=== PATIENT | female | born 1970 | race Caucasian/White ===

== ENCOUNTER 2017-12-16 17:16 | Observation (INO) | payer BC ==
--- NOTE | 2017-12-16 18:15 | PDOC ---
History of Present Illness - General Chief Complaint: Seizure Stated Complaint: UNABLE TO SPEACH, ALMOST HAD A SEIZURE Time Seen by Provider: 12/16/17 17:25 History Source: Patient Exam Limitations: No Limitations - History of Present Illness Initial Comments: 12/16/17 18:20 The patient is a 47F with a PMH of seizures, anxiety, chronic lyme dz, who presents to the ER after stating she had a seizure. The patient states that she woke up this morning feeling fatigued, as she does every morning when she has seizures, and then had a seizure despite taking tegretol which she takes every time before she feels a seizure. She states that she had her seizure but did not have LOC, tongue biting, but had an episode of aphasia where she could not talk but could text what she was thinking. She denies any new numbness, tingling , or weakness, CP, SOB, fever, chills, nausea, vomiting. Past History - Past Medical History Allergies/Adverse Reactions: Allergies Allergy/AdvReac Type Severity Reaction Status Date / Time ciprofloxacin [From Cipro] Allergy Verified 12/16/17 17:25 levofloxacin [From Levaquin] Allergy Verified 12/16/17 17:25 Quinolones Allergy Verified 12/16/17 17:25 Home Medications: Ambulatory Orders Acetaminophen/Caffeine/Butalb [Fioricet -] 1 tablet PO PRN PRN 12/16/17 Clonazepam 0.25 mg PO ASDIR 12/16/17 Clonazepam 0.5 mg PO HS 12/16/17 Dexlansoprazole [Dexilant] 60 mg PO DAILY 12/16/17 Montelukast Sodium [Singulair] 10 mg PO DAILY 12/16/17 Ondansetron [Zofran -] 8 mg PO ASDIR 12/16/17 Oxycodone HCl/Acetaminophen [Endocet 10-325 mg Tablet] 1 - 2 each PO PRN PRN Sucralfate 1 gm PO DAILY 12/16/17 Thyroid [[place] Thyroid] 60 mg PO DAILY 12/16/17 Tizanidine HCl 18 mg PO HS 12/16/17 Carbamazepine Xr [Tegretol XR -] 200 mg PO BID tab.er.12h 12/17/17 COPD: No Seizures: Yes Other medical history: [employer] LYME DZ, [place] SPOTTED FEVER, AUTONOMIC NVS SYS D/O, SHINGLES - Suicide/Smoking/Psychosocial Hx Smoking History: Never smoked Hx Alcohol Use: No Drug/Substance Use Hx: No Substance Use Type: Alcohol Review of Systems - Review of Systems Able to Perform ROS?: Yes Comments:: 12/16/17 18:30 GENERAL/CONSTITUTIONAL: Positive for weakness. No fever or chills. HEAD, EYES, EARS, NOSE AND THROAT: No change in vision. No ear pain or discharge. No sore throat. CARDIOVASCULAR: No chest pain, palpitations, or lightheadedness. RESPIRATORY: No cough, wheezing, shortness of breath, or hemoptysis. GASTROINTESTINAL: No nausea, vomiting, diarrhea, constipation, or abdominal pain. GENITOURINARY: No dysuria, frequency, hematuria, or change in urination. MUSCULOSKELETAL: No joint or muscle swelling or pain. No neck or back pain. SKIN: No rash or lesions. NEUROLOGIC: Positive for seizure, headache, and chronic numbness 2/2 trigeminal neuralgia. No numbness, tingling, weakness, or change in strength/sensation. ENDOCRINE: No increased thirst. No abnormal weight change. HEMATOLOGIC/LYMPHATIC: No anemia, easy bleeding, or history of blood clots. ALLERGIC/IMMUNOLOGIC: No hives or skin allergy. Is the patient limited Nepalese proficient: No *Physical Exam - Vital Signs Last Vital Signs Temp Pulse Resp BP Pulse Ox 98.0 F 91 H 18 132/89 100 12/16/17 17:24 12/16/17 17:24 12/16/17 17:24 12/16/17 17:24 12/16/17 17:24 - Physical Exam Comments: 12/16/17 18:30 GENERAL: Well developed, well nourished. Awake and alert. No acute distress. HEENT: Normocephalic, atraumatic. Hearing grossly normal. Moist mucous membranes. PERRLA, EOMI. No conjunctival pallor. Sclera are non-icteric. NECK: Supple. Full ROM. No JVD. CARDIOVASCULAR: Regular rate and rhythm. No murmurs, rubs, or gallops. PULMONARY: No evidence of respiratory distress. Lungs clear to auscultation bilaterally. No wheezing, rales or rhonchi. ABDOMINAL: Soft. Non-tender. Non-distended. No rebound or guarding. GENITOURINARY: No CVA tenderness bilaterally. MUSCULOSKELETAL: Normal range of motion at all joints. No bony deformities or tenderness. EXTREMITIES: No cyanosis. No clubbing. No edema. No calf tenderness or swelling. SKIN: Warm and dry. Normal capillary refill. No rashes. No jaundice. NEUROLOGICAL: Alert, awake, appropriate. Cranial nerves 2-12 intact. No deficits to light touch and temperature in face, upper extremities and lower extremities. 5/5 strength in deltoids, biceps, triceps, quadriceps, hamstrings, and gastrocnemius. Finger to nose normal bilaterally. Normal speech. Gait is normal without ataxia. PSYCHIATRIC: Cooperative. Good eye contact. Appropriate mood and affect. ED Treatment Course - LABORATORY CBC & Chemistry Diagram: 12/17/17 07:15 12/17/17 07:15 Medical Decision Making - Medical Decision Making 12/16/17 18:32 The patient is a 47F with a PMH of seizures, anxiety, and trigeminal neuralgia who presents to the ER after stating she had a seizure. The pt's history sounds more like an atypical migraine but could be a seizure. Due to her change ( aphasia) in her seizure, I will image her brain. Pending basic labs and imaging. 12/16/17 19:03 Pt signed out to Dr. Plunkett for further care. *DC/Admit/Observation/Transfer Diagnosis at time of Disposition: Hyponatremia - Discharge Dispostion Disposition: HOME Condition at time of disposition: Stable - Referrals - Patient Instructions - Post Discharge Activity
--- NOTE | 2017-12-16 18:19 | PDOC ---
Attending Attestation - Resident Resident Name: Levy Saxena - ED Attending Attestation I have performed the following: I have examined & evaluated the patient, The case was reviewed & discussed with the resident, I agree w/resident's findings & plan - HPI HPI: 12/16/17 18:16 47 y/o female with hx of seizures and trigeminal neuralgia presents with seizure activity today but states this was different, she could not get words out, had to text them. Denies headache, fever or chills. No fall or trauma. Similar episode 2 weeks ago. No blurred vision. No N/V/d/C. Took her Tegretol and Clonazepam. Sees a Neurologist. No chest pain or SOB. - Physicial Exam PE: 12/16/17 18:18 VS stable HEENT unremarkable Heart : RRR w/o murmur Lungs: CTA b/l, no wheezes rhonchi or rales Abd: soft non tender +BS EXT: neg C/C/E Neuro: CN 2-12 grossly intact, no focal deficits noted - Medical Decision Making 12/16/17 18:28 Discussed case with Resident [place], will obtain CT head and labs. Will r/o TIA, seizure, flare up of trigeminal neuralgia Pt is in agreement with plan Case to be endorsed to Dr. Richmond at 1900. NIH Stroke Scale - Initial Evaluation Level of consciousness: Alert Ask patient the month and their age: Answers both correctly Ask patient to open & close eyes; make fist and let go: Obeys both correctly Best gaze (horizontal eye movement): Normal Visual field testing: No visual field loss Facial paresis (Show teeth/raise eyebrows/close eyes tight): Normal symmetrical movement Motor Function: Left Arm: Normal Motor Function: Right Arm: Normal (extends arm 90 (or 45) degrees for 10 seconds without drift Motor Function: Left Leg: Normal (extends leg 30 degrees for 5 seconds without drift) Motor Function: Right Leg: Normal (extends leg 30 degrees for 5 seconds without drift) Limb Ataxia: No ataxia Sensory(Use pinprick test arms,legs,trunk,face/side to side): Normal Best language (Describe picture, name items, read sentences): No Aphasia Dysarthria (read several words): Normal articulation Extinction and Inattention: No abnormality - Total Score NIH Stroke Scale Score: 0
[2017-12-16 18:44] LABS: HEMATOCRIT 33.1 % (32.4-45.2); HEMOGLOBIN 10.8 GM/dl (10.7-15.3); MCH 31.3 pg (25.7-33.7); MCHC 32.5 g/dl (32.0-36.0); MEAN CELL VOLUME 96.3 fl (80-96); MEAN PLT VOLUME 8.9 fl (7.5-11.1); PLATELET COUNT 343 K/MM3 (134-434); RBC 3.44 M/mm3 (3.60-5.2); RDW 16.3 % (11.6-15.6); WHITE BLOOD COUNT 5.3 K/mm3 (4.0-10.8)
[2017-12-16 19:02] LABS: ADD RBC MORPHOLOGY YES
[2017-12-16 19:08] LABS: ALBUMIN 4.1 g/dl (3.5-5.0); ALK PHOS 50 U/L (32-92); ANION GAP 5 (8-16); BILIRUBIN,TOTAL 0.8 mg/dl (0.2-1.0); BLOOD UREA NITROGEN 17 mg/dl (7-18); CALCIUM 8.5 mg/dl (8.4-10.2); CHLORIDE 98 mmol/L (98-107); CO2 26 mmol/L (22-28); CREATININE 0.7 mg/dl (0.6-1.3); GLUCOSE,RANDOM 76 mg/dl (74-106); MAGNESIUM 2.1 mg/dL (1.8-2.4); POTASSIUM 4.3 mmol/L (3.5-5.1); SGOT/AST 31 U/L (10-42); SGPT/ALT 27 U/L (10-40); SODIUM 129 mmol/L (136-145); TOT PROT 6.8 g/dl (6.4-8.3)
[2017-12-16] MEDS ORDERED: SODIUM CHLORIDE 1,000 ML IV ONE (19:34)
--- NOTE | 2017-12-16 19:43 | PDOC ---
*Physical Exam - Vital Signs Last Vital Signs Temp Pulse Resp BP Pulse Ox 98.0 F 91 H 18 132/89 100 12/16/17 17:24 12/16/17 17:24 12/16/17 17:24 12/16/17 17:24 12/16/17 17:24 ED Treatment Course - LABORATORY CBC & Chemistry Diagram: 12/16/17 18:33 12/16/17 16:28 - ADDITIONAL ORDERS Additional order review: Laboratory Results 12/16/17 16:28 Sodium 129 L Potassium 4.3 Chloride 98 Carbon Dioxide 26 Anion Gap 5 L BUN 17 Creatinine 0.7 Creat Clearance w eGFR > 60 Random Glucose 76 Calcium 8.5 Magnesium 2.1 Total Bilirubin 0.8 AST 31 ALT 27 Alkaline Phosphatase 50 Total Protein 6.8 Albumin 4.1 12/16/17 18:33 RBC 3.44 L MCV 96.3 H MCHC 32.5 RDW 16.3 H MPV 8.9 Neutrophils % No Result Required. Lymphocytes % No Result Required. Progress Note - Progress Note Progress Note: Care of this patient was transferred to ma from Dr. Fregoso at 1900 hrs. This is a 47-year-old female who had an episode of difficulty speaking. Patient does have a seizure disorder and is on carbamazepine. Patient has a neurologist that follows her and the neurologist requested that we also sent off a carbamazepine level. Patient has a workup pending including CBC, comp, head CT. Patient otherwise is without complaints and had a normal exam. 19:45 Patient's sodium came back low at 129. Will give patient a liter saline. Rest of her workup was unremarkable including a CBC and the rest of the chemistries. Patient's head CT is still pending and her urine tox is still pending 20:[address] is negative for any acute pathology. Patient's urine tox is still pending however she is being given normal saline and will be placed in observation overnight for repletion of her hyponatremia. *DC/Admit/Observation/Transfer Diagnosis at time of Disposition: Hyponatremia - Discharge Dispostion Condition at time of disposition: Stable Decision to Admit order: Yes - Referrals Referrals: Jose Levine MD [Staff Physician] - Kishor Riojas MD [Staff Physician] - - Patient Instructions - Post Discharge Activity
[2017-12-16 20:14] LABS: COCAINE, UR NEGATIVE ng/ml (CUTOFF=300); URINE AMPHETAMINES NEGATIVE ng/ml (CUTOFF=500); URINE BENZODIAZEPINES NEGATIVE ng/ml (CUTOFF=200)
[2017-12-16 20:15] LABS: METHADONE, UR NEGATIVE ng/ml (CUTOFF=300); OPIATES, URI POSITIVE ng/ml (CUTOFF=300); PHENCYCLIDINE,URINE NEGATIVE ng/ml (CUTOFF=25); URINE BARBITURATES POSITIVE ng/ml (CUTOFF=200)
--- NOTE | 2017-12-16 21:10 | HP ---
CHIEF COMPLAINT: Seizure, Aphasia PCP: Dr. Ericka Garcia Neurologist: Dr. Randolph HISTORY OF PRESENT ILLNESS: This is a 47 y/o woman with a PMHx of Seizures, Chronic Lyme Disease, Anxiety, Shingles, Postherpetic Neuralgia. Who presents to the ED for Seizure Activity, Aphasia, numbness to face. The patient states that she woke up this morning feeling fatigued, as she does every morning when she has seizures, and then had a seizure despite taking tegretol which she takes every time before she feels a seizure. She states that she had her seizure but did not have LOC, tongue biting , but had an episode of aphasia where she could not talk but could text what she was thinking. She denies any new numbness, tingling, or weakness, CP, SOB, fever, chills, nausea, vomiting. Last EEG- Aug, 2017 showed- Left frontal lobe abnormalities, per patient. ER course was notable for: (1) CT Head- neg pathology (2) Chest Xray- Scoliosis, no acute pathology (3) Na 129 Recent Travel: None PAST MEDICAL HISTORY: See HPI PAST SURGICAL HISTORY: Social History: Smoking: Former Alcohol: None Drugs: None Lives with spouse and children Family History: Aunts: Autoimmune: Graves, RA, Hoshimoto's Allergies ciprofloxacin [From Cipro] Allergy (Verified 12/16/17 17:25) levofloxacin [From Levaquin] Allergy (Verified 12/16/17 17:25) Quinolones Allergy (Verified 12/16/17 17:25) HOME MEDICATIONS: Home Medications Medication Instructions Recorded Acetaminophen/Caffeine/Butalb 1 tablet PO PRN PRN 12/16/17 [Fioricet -] Carbamazepine [Tegretol -] 100 mg PO DAILY 12/16/17 Carbamazepine [Tegretol -] 200 mg PO HS 12/16/17 Clonazepam 0.25 mg PO ASDIR 12/16/17 Clonazepam 0.5 mg PO HS 12/16/17 Dexlansoprazole [Dexilant] 60 mg PO DAILY 12/16/17 Fluconazole 200 mg PO DAILY 12/16/17 Montelukast Sodium [Singulair] 10 mg PO DAILY 12/16/17 Ondansetron [Zofran -] 8 mg PO ASDIR 12/16/17 Oxycodone HCl/Acetaminophen 1 - 2 each PO PRN PRN 12/16/17 [Endocet 10-325 mg Tablet] Sucralfate 1 gm PO DAILY 12/16/17 Thyroid [[place] Thyroid] 60 mg PO DAILY 12/16/17 Tizanidine HCl 6 mg PO TID 12/16/17 REVIEW OF SYSTEMS CONSTITUTIONAL: malaise Absent: fever, chills, diaphoresis, generalized weakness, loss of appetite, weight change HEENT: Absent: rhinorrhea, nasal congestion, throat pain, throat swelling, difficulty swallowing, mouth swelling, ear pain, eye pain, visual changes CARDIOVASCULAR: Absent: chest pain, syncope, palpitations, irregular heart rate, lightheadedness , peripheral edema RESPIRATORY: Absent: cough, shortness of breath, dyspnea with exertion, orthopnea, wheezing, stridor, hemoptysis GASTROINTESTINAL: Absent: abdominal pain, abdominal distension, nausea, vomiting, diarrhea, constipation, melena, hematochezia GENITOURINARY: Absent: dysuria, frequency, urgency, hesitancy, hematuria, flank pain, genital pain MUSCULOSKELETAL: Absent: myalgia, arthralgia, joint swelling, back pain, neck pain SKIN: Absent: rash, itching, pallor HEMATOLOGIC/IMMUNOLOGIC: Absent: easy bleeding, easy bruising, lymphadenopathy, frequent infections ENDOCRINE: Absent: unexplained weight gain, unexplained weight loss, heat intolerance, cold intolerance NEUROLOGIC: headache, paresthesias, seizure Absent: focal weakness, dizziness, unsteady gait, mental status changes, bladder or bowel incontinence PSYCHIATRIC: Absent: anxiety, depression, suicidal or homicidal ideation, hallucinations. PHYSICAL EXAMINATION Vital Signs - 24 hr 12/16/17 17:24 Temperature 98.0 F Pulse Rate 91 H Respiratory 18 Rate Blood Pressure 132/89 O2 Sat by Pulse 100 Oximetry (%) GENERAL: Awake, alert, and fully oriented, in no acute distress. HEAD: Normal with no signs of trauma. EYES: Pupils equal, round and reactive to light, extraocular movements intact, sclera anicteric, conjunctiva clear. No lid lag. EARS, NOSE, THROAT: Ears normal, nares patent, oropharynx clear without exudates. Moist mucous membranes. NECK: Normal range of motion, supple without lymphadenopathy, JVD, or masses. LUNGS: Breath sounds equal, clear to auscultation bilaterally. No wheezes, and no crackles. No accessory muscle use. HEART: Regular rate and rhythm, normal S1 and S2 without murmur, rub or gallop. ABDOMEN: Soft, nontender, not distended, normoactive bowel sounds, no guarding, no rebound, no masses. No hepatomegaly or splenomegaly. MUSCULOSKELETAL: Normal range of motion at all joints. No bony deformities or tenderness. No CVA tenderness. UPPER EXTREMITIES: 2+ pulses, warm, well-perfused. No cyanosis. No clubbing. No peripheral edema. LOWER EXTREMITIES: 2+ pulses, warm, well-perfused. No calf tenderness. No peripheral edema. NEUROLOGICAL: Cranial nerves II-XII intact. Normal speech. Gait not observed. Decreased sensation to L- side of face PSYCHIATRIC: Cooperative. Good eye contact. Appropriate mood and affect. SKIN: Warm, dry, normal turgor, no rashes or lesions noted, normal capillary refill. Multiple Tattoos Laboratory Results - last 24 hr 12/16/17 12/16/17 12/16/17 16:28 18:32 18:32 WBC RBC Hgb Hct MCV MCH MCHC RDW Plt Count MPV Neutrophils % Lymphocytes % Sodium 129 L Potassium 4.3 Chloride 98 Carbon Dioxide 26 Anion Gap 5 L BUN 17 Creatinine 0.7 Creat Clearance w eGFR > 60 Random Glucose 76 Calcium 8.5 Magnesium 2.1 Total Bilirubin 0.8 AST 31 ALT 27 Alkaline Phosphatase 50 Troponin I Total Protein 6.8 Albumin 4.1 Opiates Screen Positive Methadone Screen Negative Barbiturate Screen Positive Carbamazepine 5.3 Phencyclidine Screen Negative Ur Amphetamines Screen Negative MDMA (Ecstasy) Screen Negative Benzodiazepines Screen Negative Cocaine Screen Negative U Marijuana (THC) Screen Negative 12/16/17 12/16/17 18:33 18:33 WBC 5.3 RBC 3.44 L Hgb 10.8 Hct 33.1 MCV 96.3 H MCH 31.3 MCHC 32.5 RDW 16.3 H Plt Count 343 MPV 8.9 Neutrophils % No Result Required. Lymphocytes % No Result Required. Sodium Potassium Chloride Carbon Dioxide Anion Gap BUN Creatinine Creat Clearance w eGFR Random Glucose Calcium Magnesium Total Bilirubin AST ALT Alkaline Phosphatase Troponin I < 0.03 Total Protein Albumin Opiates Screen Methadone Screen Barbiturate Screen Carbamazepine Phencyclidine Screen Ur Amphetamines Screen MDMA (Ecstasy) Screen Benzodiazepines Screen Cocaine Screen U Marijuana (THC) Screen ASSESSMENT/PLAN: This is a 47 y/o woman with a PMHx of Seizures, Chronic Lyme Disease, Anxiety, Shingles, Postherpetic Neuralgia. Placed in Observation for Seizure Activity for further evaluation of their emergent condition. Plan: FEN: - PO Fluids as tolerated - Replete lytes as indicated - Regular Diet DVT ppx - OOB - SCDs - Consider AC if LOS > 48 hrs Code Status: Full Code Dispo: Observation Problem List - Problem (1) Hyponatremia Assessment/Plan: - Likely secondary to Dehydration - Na deficit 253 - Given 1L NS in ED - Will repeat Na in am - Monitor vitals - Sodium correction goal 6-8 meq/24hrs Code(s): E87.1 - HYPO-OSMOLALITY AND HYPONATREMIA (2) Seizure disorder Assessment/Plan: - CT Head- neg ICH - Tegretol level 5.3 - Continue home med - Appreciate Neurology consult - Seizure Precautions - Fall Precautions - Monitor vitals - Repeat CBC, BMP in am - Consider EEG, MRI, will defer to Neuro Code(s): G40.909 - EPILEPSY, UNSP, NOT INTRACTABLE, WITHOUT STATUS EPILEPTICUS (3) Anxiety Assessment/Plan: - Continue home med Code(s): F41.9 - ANXIETY DISORDER, UNSPECIFIED (4) History of Lyme disease Assessment/Plan: - Continue to monitor and treat with interventions accordingly Code(s): Z86.19 - PERSONAL HISTORY OF OTHER INFECTIOUS AND PARASITIC DISEASES Visit type - Emergency Visit Emergency Visit: Yes ED Registration Date: 12/16/17 Care time: The patient presented to the Emergency Department on the above date and was hospitalized for further evaluation of their emergent condition. - New Patient This patient is new to me today: Yes Date on this admission: 12/16/17 - Critical Care Critical Care patient: No Hospitalist Screening - Colonoscopy Questionnaire Colonoscopy Questionnaire: Colonoscopy Questionnaire - Patient: 50 - 75 years old and never had a screening colonoscopy: No History of colon or rectal polyps, or CA: No History of IBD, Crohn's disease or UC: No History of abdominal radiation therapy as a child: No - Relative: 1 with colon or rectal CA, or polyps at age 60 or younger: No Colon or rectal CA diagnosed at age 45 or younger: No Multiple relatives with colon or rectal CA: No - Outcome: Screening Result: Negative Screen
[2017-12-16 21:18] LABS: URINE APPEARANCE Clear; URINE BILIRUBIN Negative (NEGATIVE); URINE COLOR Yellow; URINE GLUCOSE (UA) Negative (NEGATIVE); URINE KETONE Negative (NEGATIVE); URINE LEUK ESTERASE Negative (NEGATIVE); URINE NITRITE Negative (NEGATIVE); URINE PROTEIN Negative (NEGATIVE); URINE UROBILINOGEN 0.2 (0.2-1.0)
[2017-12-16 21:57] LABS: MACROCYTOSIS 2+; OVALOCYTE 1+; PLATELET ESTIMATE SLT INCREASE; TARGET CELLS 2+; TEAR DROP CELLS 2+
[2017-12-16] MEDS ORDERED: carBAMazepine 200 MG TABLET PO SCH (22:00)
[2017-12-16] MEDS ORDERED: clonazePAM 0.5 MG TABLET PO SCH (22:00)
[2017-12-16 22:22] VITALS: BMI 19.3
[2017-12-16] MEDS ORDERED: FLUCONAZOLE 100 MG TABLET (UD) PO SCH (22:46)
[2017-12-16] MEDS ORDERED: TIZANIDINE HCL 4 MG TABLET PO SCH (23:00)
[2017-12-17 06:41] VITALS: BP 85/53; PULSE 66; TEMP 97.8
[2017-12-17] MEDS ORDERED: THYROID 30 MG TABLET PO SCH (08:00)
[2017-12-17 08:05] LABS: EOS % 2.8 % (0-4.5)
--- NOTE | 2017-12-17 08:11 | PN ---
"Physical Exam: SUBJECTIVE: Patient seen and examined OBJECTIVE: Vital Signs Period Temp Pulse Resp BP Sys/[place] Pulse Ox Last 24 Hr 97.8 F-98.3 F 66-91 16-18 85-132/53-89 100-100 GENERAL: The patient is awake, alert, and fully oriented, in no acute distress. HEAD: Normal with no signs of trauma. EYES: PERRL, extraocular movements intact, sclera anicteric, conjunctiva clear. No ptosis. ENT: Ears normal, nares patent, oropharynx clear without exudates, moist mucous membranes. NECK: Trachea midline, full range of motion, supple. LUNGS: Breath sounds equal, clear to auscultation bilaterally, no wheezes, no crackles, no accessory muscle use. HEART: Regular rate and rhythm, S1, S2 without murmur, rub or gallop. ABDOMEN: Soft, nontender, nondistended, normoactive bowel sounds, no guarding, no rebound, no hepatosplenomegaly, no masses. EXTREMITIES: 2+ pulses, warm, well-perfused, no edema. NEUROLOGICAL: Cranial nerves II through XII grossly intact. Normal speech, gait not observed. PSYCH: Normal mood, normal affect. SKIN: Warm, dry, normal turgor, no rashes or lesions noted Laboratory Results - last 24 hr 12/16/17 12/16/17 12/16/17 16:28 18:32 18:32 WBC RBC Hgb Hct MCV MCH MCHC RDW Plt Count MPV Neutrophils % Neutrophils % (Manual) Lymphocytes % Lymphocytes % (Manual) Monocytes % (Manual) Eosinophils % (Manual) Platelet Estimate Platelet Comment Macrocytosis Spherocytes Target Cells Tear Drop Cells Ovalocytes Sodium 129 L Potassium 4.3 Chloride 98 Carbon Dioxide 26 Anion Gap 5 L BUN 17 Creatinine 0.7 Creat Clearance w eGFR > 60 Random Glucose 76 Calcium 8.5 Magnesium 2.1 Total Bilirubin 0.8 AST 31 ALT 27 Alkaline Phosphatase 50 Troponin I Total Protein 6.8 Albumin 4.1 Urine Color Urine Appearance Urine pH Ur Specific [place] Urine Protein Urine Glucose (UA) Urine Ketones Urine Blood Urine Nitrite Urine Bilirubin Urine Urobilinogen Ur Leukocyte Esterase Urine HCG, Qual Opiates Screen Positive Methadone Screen Negative Barbiturate Screen Positive Carbamazepine 5.3 Phencyclidine Screen Negative Ur Amphetamines Screen Negative MDMA (Ecstasy) Screen Negative Benzodiazepines Screen Negative Cocaine Screen Negative U Marijuana (THC) Screen Negative 08/19/18 08/19/18 08/19/18 18:33 18:33 21:00 WBC 5.3 RBC 3.44 L Hgb 10.8 Hct 33.1 MCV 96.3 H MCH 31.3 MCHC 32.5 RDW 16.3 H Plt Count 343 MPV 8.9 Neutrophils % No Result Required. Neutrophils % (Manual) 38.0 L Lymphocytes % No Result Required. Lymphocytes % (Manual) 46.0 H Monocytes % (Manual) 6 Eosinophils % (Manual) 3.0 Platelet Estimate Slt increase Platelet Comment Giant platelets Macrocytosis 2+ Spherocytes 1+ Target Cells 2+ Tear Drop Cells 2+ Ovalocytes 1+ Sodium Potassium Chloride Carbon Dioxide Anion Gap BUN Creatinine Creat Clearance w eGFR Random Glucose Calcium Magnesium Total Bilirubin AST ALT Alkaline Phosphatase Troponin I < 0.03 Total Protein Albumin Urine Color Yellow Urine Appearance Clear Urine pH 5.0 Ur Specific [place] <= 1.005 Urine Protein Negative Urine Glucose (UA) Negative Urine Ketones Negative Urine Blood Negative Urine Nitrite Negative Urine Bilirubin Negative Urine Urobilinogen 0.2 Ur Leukocyte Esterase Negative Urine HCG, Qual Opiates Screen Methadone Screen Barbiturate Screen Carbamazepine Phencyclidine Screen Ur Amphetamines Screen MDMA (Ecstasy) Screen Benzodiazepines Screen Cocaine Screen U Marijuana (THC) Screen 12/16/17 21:00 WBC RBC Hgb Hct MCV MCH MCHC RDW Plt Count MPV Neutrophils % Neutrophils % (Manual) Lymphocytes % Lymphocytes % (Manual) Monocytes % (Manual) Eosinophils % (Manual) Platelet Estimate Platelet Comment Macrocytosis Spherocytes Target Cells Tear Drop Cells Ovalocytes Sodium Potassium Chloride Carbon Dioxide Anion Gap BUN Creatinine Creat Clearance w eGFR Random Glucose Calcium Magnesium Total Bilirubin AST ALT Alkaline Phosphatase Troponin I Total Protein Albumin Urine Color Urine Appearance Urine pH Ur Specific [place] Urine Protein Urine Glucose (UA) Urine Ketones Urine Blood Urine Nitrite Urine Bilirubin Urine Urobilinogen Ur Leukocyte Esterase Urine HCG, Qual Negative Opiates Screen Methadone Screen Barbiturate Screen Carbamazepine Phencyclidine Screen Ur Amphetamines Screen MDMA (Ecstasy) Screen Benzodiazepines Screen Cocaine Screen U Marijuana (THC) Screen Active Medications Generic Name Dose Route Start Last Admin Trade Name Freq PRN Reason Stop Dose Admin Carbamazepine 200 mg 12/16/17 22:00 12/16/17 22:28 Tegretol - PO 200 mg HS AMY Administration Carbamazepine 100 mg 12/17/17 10:00 Tegretol - PO DAILY AMY Clonazepam 0.5 mg 12/16/17 22:00 12/16/17 22:28 Klonopin - PO 0.5 mg HS AMY Administration Fluconazole 200 mg 12/16/17 22:46 12/16/17 23:27 Diflucan - PO 12/22/17 22:45 Not Given DAILY AMY Thyroid 60 mg 12/17/17 08:00 [place] Thyroid - PO DAILY@0700 AMY Tizanidine HCl 18 mg 12/16/17 23:00 12/16/17 23:33 Tizanidine Hcl PO 18 mg HS AMY Administration ASSESSMENT/PLAN: This is a 47 y/o woman with a PMHx of Seizures, Chronic Lyme Disease, Anxiety, Shingles, Postherpetic Neuralgia. Who presents to the ED for Seizure Activity, Aphasia, numbness to face. The patient states that she woke up this morning feeling fatigued, as she does every morning when she has seizures, and then had a seizure despite taking tegretol which she takes every time before she feels a seizure. She states that she had her seizure but did not have LOC, tongue biting , but had an episode of aphasia where she could not talk but could text what she was thinking. She denies any new numbness, tingling, or weakness, CP, SOB, fever, chills, nausea, vomiting. Last EEG- Aug, 2017 showed- Left frontal lobe abnormalities, per patient. ER course was notable for: (1) CT Head- neg pathology (2) Chest Xray- Scoliosis, no acute pathology (3) Na 129 - Problem (1) Hyponatremia Assessment/Plan: - Likely secondary to Dehydration - Na deficit 253 - Given 1L NS in ED - Will repeat Na in am - Monitor vitals - Sodium correction goal 6-8 meq/24hrs Code(s): E87.1 - HYPO-OSMOLALITY AND HYPONATREMIA (2) Seizure disorder Assessment/Plan: - CT Head- neg ICH - Tegretol level 5.3 - Continue home med - Appreciate Neurology consult - Seizure Precautions - Fall Precautions - Monitor vitals - Repeat CBC, BMP in am - Consider EEG, MRI, will defer to Neuro The Drug Utilization Report below displays all of the controlled substance prescriptions, if any, that your patient has filled in the last twelve months. The information displayed on this report is compiled from pharmacy submissions to the Department, and accurately reflects the information as submitted by the pharmacies. This report was requested by: Erlinda Salcedo | Reference #: [id number] Others' Prescriptions Patient Name: Susy Ho Date: 1970 Address: [address] [place] [address] Sex: Female Rx Written Rx Dispensed Drug Quantity Days Supply Prescriber Name 11/24/2017 11/26/2017 oxycodone-acetaminophen 10-325 mg tab 150 18 Randolph, Michaela 11/02/2017 11/02/2017 clonazepam 0.5 mg tablet 150 30 Randolph, Michaela 11/02/2017 11/02/2017 oxycodone-acetaminophen 10-325 mg tab 150 18 Randolph, Michaela 09/29/2017 10/02/2017 oxycodone-acetaminophen 10-325 mg tab 150 19 Randolph, Michaela 09/03/2017 09/05/2017 oxycodone-acetaminophen 10-325 mg tab 150 18 Randolph, Michaela 08/04/2017 08/06/2017 oxycodone-acetaminophen 10-325 mg tab 150 18 Randolph, Michaela 07/06/2017 07/06/2017 oxycodone-acetaminophen 10-325 mg tab 150 18 Randolph, Michaela 07/06/2017 07/06/2017 clonazepam 0.5 mg tablet 150 30 Randolph, Michaela 06/05/2017 06/07/2017 oxycodone-acetaminophen 10-325 mg tab 150 18 Randolph, Michaela 04/28/2017 05/02/2017 oxycodone-acetaminophen 10-325 mg tab 150 13 Tomasa, Michaela 03/31/2017 04/04/2017 oxycodone-acetaminophen 10-325 mg tab 150 13 Michaela Randolph MD 03/06/2017 03/07/2017 clonazepam 0.5 mg tablet 150 30 Michaela Randolph MD 03/06/2017 03/07/2017 oxycodone-acetaminophen 10-325 mg tab 150 13 Michaela Randolph MD 02/01/2017 02/05/2017 oxycodone-acetaminophen 10-325 mg tab 150 13 Michaela Randolph MD Patient Name: Susy Ho Date: 1970 Address: [address] [place] [address] Sex: Female Rx Written Rx Dispensed Drug Quantity Days Supply Prescriber Name 01/09/2017 01/10/2017 oxycodone-acetaminophen 10-325 mg tab 150 25 Michaela Randolph MD cc Possible breakthrough seizure HPI 47 year old female hsitory of chronic lyme disease, post herpetic neuralgia , trigeminal nerualgia, anxiety. Patient has history of seizure and being controlled on tegretal 300 mg qhs. Paitent had eeg showed some abnormality. Patient become aphasic yesterday and she could understand and text but could not talk and she as ablet to understand. She never had these seizure before. her usual seizure is feeling of fatique in the morning. She is currently sitting in bed and eating breakfast and normal speech. Initial ct scan was normal. PMH as above. Social History: Smoking: Former Alcohol: None Drugs: None Lives with spouse and children Aunts: Autoimmune: Graves, RA, Hoshimoto's Allergies ciprofloxacin [From Cipro] Allergy (Verified 12/16/17 17:25) levofloxacin [From Levaquin] Allergy (Verified 12/16/17 17:25) Quinolones Allergy (Verified 12/16/17 17:25) HOME MEDICATIONS: Home Medications Medication Instructions Recorded Acetaminophen/Caffeine/Butalb 1 tablet PO PRN PRN 12/16/17 [Fioricet -] Carbamazepine [Tegretol -] 100 mg PO DAILY 12/16/17 Carbamazepine [Tegretol -] 200 mg PO HS 12/16/17 Clonazepam 0.25 mg PO ASDIR 12/16/17 Clonazepam 0.5 mg PO HS 12/16/17 Dexlansoprazole [Dexilant] 60 mg PO DAILY 12/16/17 Fluconazole 200 mg PO DAILY 12/16/17 Montelukast Sodium [Singulair] 10 mg PO DAILY 12/16/17 Ondansetron [Zofran -] 8 mg PO ASDIR 12/16/17 Oxycodone HCl/Acetaminophen 1 - 2 each PO PRN PRN 12/16/17 [Endocet 10-325 mg Tablet] Sucralfate 1 gm PO DAILY 12/16/17 Thyroid [[place] Thyroid] 60 mg PO DAILY 12/16/17 Tizanidine HCl 6 mg PO TID 12/16/17 Neurological Examination Alert oriented x 3 CN all intact , eomi pupils reactive no face asymmetry motor 5/5 all ext sensation is noraml gait and coordination is noraml reflex are generalized diminished ct head is unremarkable Assessment/Plan- Possible breakthrough seizure, though clinical symptoms are atypical ( not able to speech and able to text and understand, in background of anxiety and chronic pain), Plan- recommend ot do mri of brain - eeg - increase tegreal 200 mg po bid seizure precautions were discussed Thanking you so much Joel Honeycutt MD"
[2017-12-17 08:16] LABS: ANION GAP 5 (8-16); BLOOD UREA NITROGEN 10 mg/dl (7-18); CALCIUM 8.6 mg/dl (8.4-10.2); CHLORIDE 101 mmol/L (98-107); CO2 29 mmol/L (22-28); CREATININE 0.6 mg/dl (0.6-1.3); GLUCOSE,RANDOM 98 mg/dl (74-106); MAGNESIUM 2.1 mg/dL (1.8-2.4); POTASSIUM 4.9 mmol/L (3.5-5.1); SODIUM 135 mmol/L (136-145)
[2017-12-17 08:47] LABS: BASO % 0.4 % (0-2.0); HEMATOCRIT 32.5 % (32.4-45.2); HEMOGLOBIN 10.4 GM/dl (10.7-15.3); MCH 30.4 pg (25.7-33.7); MCHC 31.9 g/dl (32.0-36.0); MEAN CELL VOLUME 95.3 fl (80-96); MEAN PLT VOLUME 9.2 fl (7.5-11.1); MONO % 9.9 % (3.8-10.2); NEUT % 26.9 % (42.8-82.8); PLATELET COUNT 311 K/MM3 (134-434); RBC 3.41 M/mm3 (3.60-5.2); RDW 15.8 % (11.6-15.6); WHITE BLOOD COUNT 3.9 K/mm3 (4.0-10.8)
[2017-12-17] MEDS ORDERED: carBAMazepine 200 MG TABLET PO ONE (09:31)
--- NOTE | 2017-12-17 09:31 | CON.NEURO ---
Consult - Past Medical History ...: No - Alcohol/Substance Use Hx Alcohol Use: No - Smoking History Smoking history: Former smoker Have you smoked in the past 12 months: No If you are a former smoker, when did you quit?: 2009 Home Medications - Allergies Allergies/Adverse Reactions: Allergies Allergy/AdvReac Type Severity Reaction Status Date / Time ciprofloxacin [From Cipro] Allergy Verified 12/16/17 17:25 levofloxacin [From Levaquin] Allergy Verified 12/16/17 17:25 Quinolones Allergy Verified 12/16/17 17:25 - Home Medications Home Medications: Ambulatory Orders Acetaminophen/Caffeine/Butalb [Fioricet -] 1 tablet PO PRN PRN 12/16/17 Carbamazepine [Tegretol -] 100 mg PO DAILY 12/16/17 Carbamazepine [Tegretol -] 200 mg PO HS 12/16/17 Clonazepam 0.25 mg PO ASDIR 12/16/17 Clonazepam 0.5 mg PO HS 12/16/17 Dexlansoprazole [Dexilant] 60 mg PO DAILY 12/16/17 Fluconazole 200 mg PO DAILY 12/16/17 Montelukast Sodium [Singulair] 10 mg PO DAILY 12/16/17 Ondansetron [Zofran -] 8 mg PO ASDIR 12/16/17 Oxycodone HCl/Acetaminophen [Endocet 10-325 mg Tablet] 1 - 2 each PO PRN PRN Sucralfate 1 gm PO DAILY 12/16/17 Thyroid [[place] Thyroid] 60 mg PO DAILY 12/16/17 Tizanidine HCl 18 mg PO HS 12/16/17 Physical Exam-Neuro Vital Signs: Vital Signs Temperature 97.8 F 12/17/17 06:00 Pulse Rate 66 12/17/17 06:00 Respiratory Rate 18 12/17/17 06:00 Blood Pressure 85/53 12/17/17 06:00 O2 Sat by Pulse Oximetry (%) 100 12/17/17 06:00 Labs: CBC, BMP 12/17/17 07:15 12/17/17 07:15 Assessment/Plan cc Possible breakthrough seizure HPI 47 year old female hsitory of chronic lyme disease, post herpetic neuralgia , trigeminal nerualgia, anxiety. Patient has history of seizure and being controlled on tegretal 300 mg qhs. Paitent had eeg showed some abnormality. Patient become aphasic yesterday and she could understand and text but could not talk and she as ablet to understand. She never had these seizure before. her usual seizure is feeling of fatique in the morning. She is currently sitting in bed and eating breakfast and normal speech. Initial ct scan was normal. PMH as above. Social History: Smoking: Former Alcohol: None Drugs: None Lives with spouse and children Aunts: Autoimmune: Graves, RA, Hoshimoto's Allergies ciprofloxacin [From Cipro] Allergy (Verified 12/16/17 17:25) levofloxacin [From Levaquin] Allergy (Verified 12/16/17 17:25) Quinolones Allergy (Verified 12/16/17 17:25) HOME MEDICATIONS: Home Medications Medication Instructions Recorded Acetaminophen/Caffeine/Butalb 1 tablet PO PRN PRN 12/16/17 [Fioricet -] Carbamazepine [Tegretol -] 100 mg PO DAILY 12/16/17 Carbamazepine [Tegretol -] 200 mg PO HS 12/16/17 Clonazepam 0.25 mg PO ASDIR 12/16/17 Clonazepam 0.5 mg PO HS 12/16/17 Dexlansoprazole [Dexilant] 60 mg PO DAILY 12/16/17 Fluconazole 200 mg PO DAILY 12/16/17 Montelukast Sodium [Singulair] 10 mg PO DAILY 12/16/17 Ondansetron [Zofran -] 8 mg PO ASDIR 12/16/17 Oxycodone HCl/Acetaminophen 1 - 2 each PO PRN PRN 12/16/17 [Endocet 10-325 mg Tablet] Sucralfate 1 gm PO DAILY 12/16/17 Thyroid [[place] Thyroid] 60 mg PO DAILY 12/16/17 Tizanidine HCl 6 mg PO TID 12/16/17 Neurological Examination Alert oriented x 3 CN all intact , eomi pupils reactive no face asymmetry motor 5/5 all ext sensation is noraml gait and coordination is noraml reflex are generalized diminished ct head is unremarkable Assessment/Plan- Possible breakthrough seizure, though clinical symptoms are atypical ( not able to speech and able to text and understand, in background of anxiety and chronic pain), Plan- recommend ot do mri of brain - eeg - increase tegreal 200 mg po bid seizure precautions were discussed Thanking you so much Joel Honeycutt MD
--- NOTE | 2017-12-17 09:36 | EKG ---
Test Reason : Blood Pressure : / mmHG Vent. Rate : 070 BPM Atrial Rate : 070 BPM P-R Int : 166 ms QRS Dur : 074 ms QT Int : 382 ms P-R-T Axes : 062 064 052 degrees QTc Int : 412 ms NORMAL SINUS RHYTHM NORMAL ECG NO PREVIOUS ECGS AVAILABLE Confirmed by ANNMARIE MONTOYA MD ([id number]) on 12/17/2017 9:36:15 AM Referred By: FRANCISCO J AYALA Confirmed By:ANNMARIE MONTOYA MD
[2017-12-17] MEDS ORDERED: oxyCODONE HCL 5 MG TABLET PO PRN (09:40)
--- NOTE | 2017-12-17 09:45 | DS ---
Physical Exam: SUBJECTIVE: Patient seen and examined at bedside. Complaining of chronic leg pain. present. Has regular neurologist in [place], scheduled appointment in two weeks. has been in phone contact with neurologist. OBJECTIVE: Vital Signs Period Temp Pulse Resp BP Sys/[place] Pulse Ox Last 24 Hr 97.8 F-98.3 F 66-91 16-18 85-132/53-89 100-100 PHYSICAL EXAM GENERAL: The patient is awake, alert, and fully oriented, in no acute distress. LUNGS: Breath sounds equal, clear to auscultation bilaterally, no wheezes, no crackles, no accessory muscle use. HEART: Regular rate and rhythm, S1, S2 ABDOMEN: Soft, nontender, nondistended EXTREMITIES: 2+ pulses, warm, well-perfused, no edema. NEUROLOGICAL: Cranial nerves II through XII grossly intact. Normal speech, gait not observed. LABS Laboratory Results - last 24 hr 12/16/17 12/16/17 12/16/17 16:28 18:32 18:32 WBC RBC Hgb Hct MCV MCH MCHC RDW Plt Count MPV Absolute Neuts (auto) Neutrophils % Neutrophils % (Manual) Lymphocytes % Lymphocytes % (Manual) Monocytes % Monocytes % (Manual) Eosinophils % Eosinophils % (Manual) Basophils % Platelet Estimate Platelet Comment Macrocytosis Spherocytes Target Cells Tear Drop Cells Ovalocytes Sodium 129 L Potassium 4.3 Chloride 98 Carbon Dioxide 26 Anion Gap 5 L BUN 17 Creatinine 0.7 Creat Clearance w eGFR > 60 Random Glucose 76 Calcium 8.5 Magnesium 2.1 Total Bilirubin 0.8 AST 31 ALT 27 Alkaline Phosphatase 50 Troponin I Total Protein 6.8 Albumin 4.1 Urine Color Urine Appearance Urine pH Ur Specific [place] Urine Protein Urine Glucose (UA) Urine Ketones Urine Blood Urine Nitrite Urine Bilirubin Urine Urobilinogen Ur Leukocyte Esterase Urine HCG, Qual Opiates Screen Positive Methadone Screen Negative Barbiturate Screen Positive Carbamazepine 5.3 Phencyclidine Screen Negative Ur Amphetamines Screen Negative MDMA (Ecstasy) Screen Negative Benzodiazepines Screen Negative Cocaine Screen Negative U Marijuana (THC) Screen Negative 12/16/17 12/16/17 12/16/17 18:33 18:33 21:00 WBC 5.3 RBC 3.44 L Hgb 10.8 Hct 33.1 MCV 96.3 H MCH 31.3 MCHC 32.5 RDW 16.3 H Plt Count 343 MPV 8.9 Absolute Neuts (auto) Neutrophils % No Result Required. Neutrophils % (Manual) 38.0 L Lymphocytes % No Result Required. Lymphocytes % (Manual) 46.0 H Monocytes % Monocytes % (Manual) 6 Eosinophils % Eosinophils % (Manual) 3.0 Basophils % Platelet Estimate Slt increase Platelet Comment Giant platelets Macrocytosis 2+ Spherocytes 1+ Target Cells 2+ Tear Drop Cells 2+ Ovalocytes 1+ Sodium Potassium Chloride Carbon Dioxide Anion Gap BUN Creatinine Creat Clearance w eGFR Random Glucose Calcium Magnesium Total Bilirubin AST ALT Alkaline Phosphatase Troponin I < 0.03 Total Protein Albumin Urine Color Yellow Urine Appearance Clear Urine pH 5.0 Ur Specific [place] <= 1.005 Urine Protein Negative Urine Glucose (UA) Negative Urine Ketones Negative Urine Blood Negative Urine Nitrite Negative Urine Bilirubin Negative Urine Urobilinogen 0.2 Ur Leukocyte Esterase Negative Urine HCG, Qual Opiates Screen Methadone Screen Barbiturate Screen Carbamazepine Phencyclidine Screen Ur Amphetamines Screen MDMA (Ecstasy) Screen Benzodiazepines Screen Cocaine Screen U Marijuana (THC) Screen 12/16/17 12/17/17 12/17/17 21:00 07:15 07:15 WBC 3.9 L RBC 3.41 L Hgb 10.4 L Hct 32.5 MCV 95.3 MCH 30.4 MCHC 31.9 L RDW 15.8 H Plt Count 311 MPV 9.2 Absolute Neuts (auto) 1.0 Neutrophils % 26.9 L Neutrophils % (Manual) Lymphocytes % 60.0 H Lymphocytes % (Manual) Monocytes % 9.9 Monocytes % (Manual) Eosinophils % 2.8 Eosinophils % (Manual) Basophils % 0.4 Platelet Estimate Platelet Comment Macrocytosis Spherocytes Target Cells Tear Drop Cells Ovalocytes Sodium 135 L Potassium 4.9 Chloride 101 Carbon Dioxide 29 H Anion Gap 5 L BUN 10 Creatinine 0.6 Creat Clearance w eGFR > 60 Random Glucose 98 D Calcium 8.6 Magnesium 2.1 Total Bilirubin AST ALT Alkaline Phosphatase Troponin I Total Protein Albumin Urine Color Urine Appearance Urine pH Ur Specific [place] Urine Protein Urine Glucose (UA) Urine Ketones Urine Blood Urine Nitrite Urine Bilirubin Urine Urobilinogen Ur Leukocyte Esterase Urine HCG, Qual Negative Opiates Screen Methadone Screen Barbiturate Screen Carbamazepine Phencyclidine Screen Ur Amphetamines Screen MDMA (Ecstasy) Screen Benzodiazepines Screen Cocaine Screen U Marijuana (THC) Screen HOSPITAL COURSE: Date of Admission:12/16/17 Date of Discharge: 12/17/17 ASSESSMENT/PLAN: This is a 47 y/o woman with a PMH significant for seizure disorder, chronic Lyme disease, anxiety, and post-herpetic neuralgia. Placed on observation for possible breaththrough seizure. Patient stated that she woke up this morning feeling fatigued, as she does every morning when she has seizures, and then had a seizure despite taking tegretol which she takes every time before she feels a seizure. She states that she had her seizure but did not have LOC, tongue biting , but had an episode of aphasia where she could not talk but could text what she was thinking. She denies any new numbness, tingling, or weakness, CP, SOB, fever, chills, nausea, vomiting. Last EEG- Aug, 2017 showed- left frontal lobe abnormalities, per patient. ER course was notable for: (1) CT Head- neg pathology (2) Chest Xray- Scoliosis, no acute pathology (3) Na 129 Subsequent hospital course Seizure disorder --no seizure activity observed during hospital stay --CT head negative --Tegretol level therapeutic on low side --seen and evaluated by neuro: possible patient had breakthrough seizure although symptoms are atypical; increased Tegretol to 200mg BID; should followup as outpatient with regular neurologist for possible MRI and EEG Hyponatremia --given IV fluids overnight, Na improved 129-->135 Minutes to complete discharge: 35 Discharge Summary Reason For Visit: UNABLE TO SPEACH, ALMOST HAD A SEIZURE Current Active Problems Anxiety (Acute) History of Lyme disease (Acute) Hyponatremia (Acute) Seizure disorder (Acute) Condition: Stable - Instructions Diet, Activity, Other Instructions: It is recommended you increase our dose of carbamazepine to 200mg twice daily. You indicated you have enough medication at home and do not need a prescription. It is also recommended you follow up with your neurologist and advise her of your hospital stay as well as the recommended change in your medication. You should discuss additional testing with your neurologist including possibly an MRI and an EEG. Return to the emergency department for any new or worsening symptoms. Disposition: HOME - Home Medications Comprehensive Discharge Medication List: Ambulatory Orders Acetaminophen/Caffeine/Butalb [Fioricet -] 1 tablet PO PRN PRN 12/16/17 Carbamazepine [Tegretol -] 100 mg PO DAILY 12/16/17 Carbamazepine [Tegretol -] 200 mg PO HS 12/16/17 Clonazepam 0.25 mg PO ASDIR 12/16/17 Clonazepam 0.5 mg PO HS 12/16/17 Dexlansoprazole [Dexilant] 60 mg PO DAILY 12/16/17 Fluconazole 200 mg PO DAILY 12/16/17 Montelukast Sodium [Singulair] 10 mg PO DAILY 12/16/17 Ondansetron [Zofran -] 8 mg PO ASDIR 12/16/17 Oxycodone HCl/Acetaminophen [Endocet 10-325 mg Tablet] 1 - 2 each PO PRN PRN Sucralfate 1 gm PO DAILY 12/16/17 Thyroid [[place] Thyroid] 60 mg PO DAILY 12/16/17 Tizanidine HCl 18 mg PO HS 12/16/17 This patient is new to me today: Yes Date on this admission: 12/17/17 Emergency Visit: Yes ED Registration Date: 12/16/17 Care time: The patient presented to the Emergency Department on the above date and was hospitalized for further evaluation of their emergent condition. Critical Care patient: No - Discharge Referral Referred to [facility] No
[2017-12-17] MEDS ORDERED: oxyCODONE HCL 5 MG TABLET PO ONE (10:00)
[2017-12-17] MEDS ORDERED: MONTELUKAST NA 10 MG TABLET PO SCH (10:00)
[2017-12-17] MEDS ORDERED: THYROID 60 MG TABLET PO SCH (10:00)
[2017-12-17] MEDS ORDERED: PANTOPRAZOLE 40 MG TABLET (FP) PO SCH (10:00)
[2017-12-17] MEDS ORDERED: carBAMazepine 100 MG TAB.CHEW PO SCH (10:00)
[2017-12-17] MEDS ORDERED: carBAMazepine XR 200 MG TAB.ER.12H PO SCH (10:00)
[2017-12-17] MEDS ORDERED: PT OWN MED DRAWER 7, Y5N ONE (10:13)
[2017-12-17] MEDS ORDERED: carBAMazepine 200 MG TABLET PO SCH (12:00)
== END 2017-12-17 14:05 | disposition home or self-care (01) ==
LOC: FER 17:16 → FM/S 20:46
PROVIDERS: ADMIT Internal Medicine; ATTEND Nurse Practitioner Acute Care
PROC: 3E0337Z Introduction of Electrolytic and Water Balance Substance into Peripheral Vein, Percutaneous Approach (ICD-10-PCS; principal; 2017-12-16)
DX: E87.1 Hypo-osmolality and hyponatremia (principal); G40.909 Epilepsy, unspecified, not intractable, without status epilepticus; G50.0 Trigeminal neuralgia; F41.9 Anxiety disorder, unspecified; R47.9 Unspecified speech disturbances; Z86.19 Personal history of other infectious and parasitic diseases; Z88.1 Allergy status to other antibiotic agents; Z87.891 Personal history of nicotine dependence
CPT/HCPCS: 36415; 70450-TC; 71046-TC-FY; 80048; 80053; 80156; 80307; 81003; 83735; 84443; 84484; 84703; 85025; 93005; 99285-25; G0378; J7030